=== PATIENT | female | born 1990 | race Hispanic/Latino ===

== ENCOUNTER 2018-12-17 15:35 | Emergency (ER) | payer SELFPAY ==
[2018-12-17 15:47] VITALS: O2SAT 99
[2018-12-17] MEDS ORDERED: KETOROLAC TROMETHAMINE INJ 30 MG/ML VIAL IM ONE (16:02)
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
[2018-12-17] MEDS ORDERED: AMOXICILLIN & POT CLAVULANATE 875 MG TAB PO ONE (16:15)
[2018-12-17] MEDS ORDERED: TETANUS,DIPHTHERIA,PERTUSSIS 1 EA SYG IM ONE (16:26)
[2018-12-17 16:57] VITALS: BP 117/80; TEMP 98.4
== END 2018-12-17 16:57 | disposition home or self-care (01) ==
LOC: ER 15:35 → EDSTATUS 15:36 → ER 16:57
DX: S61.411A Laceration without foreign body of right hand, initial encounter (principal); Y04.1XXA Assault by human bite, initial encounter; Y92.9 Unspecified place or not applicable
CPT/HCPCS: 73130; 90471; 90715; J1885